=== PATIENT | male | born 1980 | race Caucasian/White ===

== ENCOUNTER 2023-02-15 21:58 | Emergency (ER) | payer OTHER ==
[~2023-02-15] VITALS: Ht 177.8 cm; Wt 96.4 kg
[2023-02-15] MEDS ORDERED: normal saline 1000ML IV soln IVB ONE (22:20)
[2023-02-15] MEDS ORDERED: CefTRIAXone/D5W-Rocephin 1gm 50 ML IV ONE (22:20)
[2023-02-15] MEDS ORDERED: acetaminophen 325mg tablet PO ONE (22:45)
[2023-02-15 23:00] VITALS: BP 150/95
[2023-02-15 23:08] LABS: BASOPHILS % (AUTO) 0.2 % (0-1); EOSINOPHILS # (AUTO) 0.2 X10'3 (0-0.9); EOSINOPHILS % (AUTO) 1.2 % (0-6); LYMPHOCYTES # (AUTO) 2.1 X10'3 (1.1-4.8); LYMPHOCYTES % (AUTO) 14.7 % (21-51); MEAN PLATELET VOLUME 7.9 FL (7.4-10.4); MONOCYTES # (AUTO) 1.6 X10'3 (0-0.9); MONOCYTES % (AUTO) 11.3 % (2-12); NEUTROPHILS # (AUTO) 10.5 X10'3 (1.8-7.7); NEUTROPHILS % (AUTO) 72.6 % (42-75); PLATELET COUNT 329 X10'3 (140-440); WHITE BLOOD COUNT 14.5 X10'3 (4.5-11.0)
[2023-02-15 23:37] LABS: ALANINE AMINOTRANSFERASE 48 U/L (12-78); ALBUMIN 3.8 G/DL (3.4-5.0); ALBUMIN/GLOBULIN RATIO 1.1 (1.1-1.5); ALKALINE PHOSPHATASE 101 IU/L (46-116); ANION GAP 9 (8-16); ASPARTATE AMINO TRANSFERASE 25 U/L (10-37); BILIRUBIN,TOTAL 0.4 MG/DL (0.1-1.0); BLOOD UREA NITROGEN 17 MG/DL (7-18); BUN/CREATININE RATIO 22.4 (10.0-20.0); CALCIUM 9.5 MG/DL (8.5-10.1); CHLORIDE 102 MMOL/L (99-107); CREATININE 0.76 MG/DL (0.60-1.10); GLUCOSE 114 MG/DL (70-104); POTASSIUM 4.1 MMOL/L (3.5-5.1); SODIUM 135 MMOL/L (135-145); TOTAL CARBON DIOXIDE 23.9 MMOL/L (24-32); TOTAL PROTEIN 7.2 G/DL (6.4-8.2); eGFR > 90 ML/MIN
[2023-02-16 00:02] LABS: HEMATOCRIT 48.4 % (42.0-52.0); HEMOGLOBIN 17.2 g/dl (14.0-17.9); MEAN CORPUSCULAR HEMOGLOBIN 32.4 PG (27.0-31.0); MEAN CORPUSCULAR HGB CONC 35.3 g/dL (33.0-36.5); MEAN CORPUSCULAR VOLUME 91.7 FL (78-98); RED BLOOD COUNT 5.32 X10'6 (4.70-6.10); RED CELL DISTRIBUTION WIDTH 12.6 % (11.5-14.5)
[2023-02-16] MEDS ORDERED: TETanus/Pertussis (Acell)/Diphther VAC/PF (Tdap-Adult) 0.5ml syringe IMVAC ONE (00:20)
[2023-02-16 00:34] LABS: PLATELET ESTIMATE NORMAL
[2023-02-16] MEDS ORDERED: CEPH-585 PO (00:34)
[2023-02-16] MEDS ORDERED: SULF1TAB49 PO (00:34)
[2023-02-16 00:35] LABS: SPHEROCYTES FEW
[2023-02-16 00:36] LABS: TEAR DROP CELLS FEW
== END 2023-02-16 01:07 ==
LOC: EEVIPCON 21:59 → ER 21:59
DX: L03.114 Cellulitis of left upper limb (principal)
CPT/HCPCS: 36415; 71045; 73110; 80053; 83605; 85008; 85025; 87040; 90471; 90715; 96361; 96374; 99284; J0696; J7030

== ENCOUNTER → 2025-01-15 | Outpatient (CLI) | payer MEDICARE, MEDICAID ==
--- NOTE | 2025-01-15 12:42 | ELECTROCARDIOGRAPH REPORT ---
[facility] Test Date: 2025-01-15 Test Time: 10:35:38 Pat Name: ALLISON JONES Department: PRE/OP CARDIOLOGY Room: Gender: M [employer]: NISHA : 1980 Requested By: LEVAR HEATH Order Number: [id number] Reading MD: Dr. TEDDY Mcelroy Measurements Intervals [place] Rate: 103 P: 86 [place]: 171 QRS: 78 QRSD: 81 T: 54 QT: 333 QTc: 436 Interpretive Statements Sinus tachycardia Consider left atrial enlargement Electronically Signed On 01-15-2025 19:49:[address] TEDDY Mcelroy Please click the below link to view image of tracing.
== END | disposition home or self-care (01) ==
LOC: RAD 10:03
PROVIDERS: ATTEND Nurse Practitioner Psychiatric/Mental Health
DX: I51.7 Cardiomegaly (principal); Z79.899 Other long term (current) drug therapy; F25.9 Schizoaffective disorder, unspecified
CPT/HCPCS: 93005